=== PATIENT | male | born 1985 | race Caucasian/White ===

== ENCOUNTER 2018-01-09 09:33 | Emergency (ER) | payer SELFPAY ==
[2018-01-09 09:39] VITALS: TEMP 98.1
[2018-01-09] MEDS ORDERED: FOLIC ACID 1 MG TAB ONE (10:05)
[2018-01-09] MEDS: FOLIC ACID 1 MG TAB PO ONE (10:09)
--- NOTE | 2018-01-09 10:38 | RAD ---
EXAM DESCRIPTION: Chest,2 Views CLINICAL HISTORY: 32 years Male, frequent pvc's COMPARISON: None. IMPRESSION: Heart size and pulmonary vascularity are within normal limits. There is no airspace consolidation, pleural effusion, or pneumothorax. No acute osseous abnormality. Electronically signed by: Bandar Mora MD 01/09/2018 10:36 AM CDT
[2018-01-09] MEDS: SODIUM CHLORIDE 0.9% 1000ML 1,000 ML IVS ONE (11:47)
[2018-01-09] MEDS: METOPROLOL TARTRATE 25 MG TAB PO ONE (13:00)
[2018-01-09 13:05] VITALS: BP 133/56
--- NOTE | 2018-01-09 13:59 | ED.PDOC ---
History of Present Illness - General Chief Complaint: Cardiovascular Problem Stated Complaint: Palpitations Time Seen by Provider: 01/09/18 09:40 Source: patient Exam Limitations: no limitations - History of Present Illness Initial Comments: the patient is a 32-year-old male presenting to emergency room secondary to palpitations that have been increasing frequency gradually over the last week. No medication changes. No history of any heart issues. No syncope or near- syncope. No chest pain. Just a sensation of palpitations. He has been anxious about this. He denies any drug or alcohol use. No history of any congenital heart problems. No other new symptoms. On telemetry monitoring the patient is having fairly frequent irregular beats that are narrow complex. They range from every other to every 6 or 7 beats. Timing/Duration: 1 week Severity: moderate Improving Factors: nothing Worsening Factors: nothing Associated Symptoms: denies symptoms Allergies/Adverse Reactions: Allergies NO KNOWN ALLERGY Allergy (Verified 01/09/18 09:38) Home Medications: Ambulatory Orders Metoprolol Tartrate 25 mg PO BID #60 tab 01/09/18 Review of Systems - Review of Systems Constitutional: States: no symptoms reported EENTM: States: no symptoms reported Respiratory: States: no symptoms reported Cardiology: States: palpitations Gastrointestinal/Abdominal: States: no symptoms reported Genitourinary: States: no symptoms reported Musculoskeletal: States: no symptoms reported Skin: States: no symptoms reported Neurological: States: no symptoms reported Endocrine: States: no symptoms reported All other Systems: No Change from Baseline Past Medical History (General) - Patient Medical History Hx Seizures: No Hx Stroke: No Hx Dementia: No Hx Asthma: No Hx of COPD: No Hx Cardiac Disorders: No Hx Congestive Heart Failure: No Hx Pacemaker: No Hx Hypertension: No Hx Thyroid Disease: No Hx Diabetes: No Hx Gastroesophageal Reflux: No Hx Renal Disease: No Hx Cancer: No Hx of HIV: No Hx Hepatitis C: No Hx MRSA: No - Vaccination History Hx Tetanus, Diphtheria Vaccination: No Hx Influenza Vaccination: No Hx Pneumococcal Vaccination: No - Social History Hx Tobacco Use: Yes Hx Alcohol Use: Yes - social use Family Medical History - Family History Mother Hx Family Hypertension: Yes Physical Exam - Physical Exam General Appearance: Alert, Comfortable, No apparent distress Eye Exam: bilateral normal Ears, Nose, Throat: hearing grossly normal, normal ENT inspection, normal pharynx Neck: full range of motion, supple Respiratory: lungs clear, normal breath sounds, no respiratory distress, no accessory muscle use Cardiovascular/Chest: normal peripheral pulses, no edema, other - regular rate butoccasional irregular rhythm Peripheral Pulses: radial,right: 2+, radial,left: 2+, dorsalis pedis,right: 2+, dorsalis pedis,left: 2+ Gastrointestinal/Abdominal: non tender, soft Rectal Exam: deferred Back Exam: normal inspection, no CVA tenderness, no vertebral tenderness Extremity: normal range of motion, non-tender, normal inspection Neurologic: visual artist II-XII nml as tested, alert, normal mood/affect, oriented x 3 Skin Exam: normal color Comments: Vital Signs - 24 hr 01/09/18 01/09/18 01/09/18 09:34 10:56 10:57 Temperature 98.1 F Pulse Rate [ 77 76 79 Left Radial] Respiratory 20 20 20 Rate Blood Pressure 106/67 136/88 124/86 [Left Arm] O2 Sat by Pulse 95 96 97 Oximetry 01/09/18 01/09/18 10:58 12:50 Temperature Pulse Rate [ 89 82 Left Radial] Respiratory 20 20 Rate Blood Pressure 150/98 133/56 [Left Arm] O2 Sat by Pulse 96 99 Oximetry Progress - Progress Progress: 01/09/18 14:00 The patient is a 32-year-old male presenting to the emergency room secondary to a sensation of palpitations. After monitoring the patient for several hours it appears the patient is most likely having normal sinus rhythm with frequent aberrant beats, possibly from an accessory pathway. he has had no sustained arrhythmia. Vital signs have been stable. he patient was given a liter of fluids for mild dehydration and started on low-dose metoprolol. I did discuss the patient briefly over the phone with Dr. Dodson, electrophysiology from [place]. He has agreed that this is a reasonable course of action. The patient will be placed on metoprolol 25 mg twice daily. He needs to follow back up with his primary care doctor in a couple weeks for reevaluation. If this is continuing to be a significant problem in spite of the medication then he can be seen by Dr. Dodson for further evaluation. I see no evidence of any dangerous arrhythmia at this time captured on telemetry. ER warnings were given. - Results/Orders Results/Orders: plan to monitoring shows normal sinus rhythm with frequent irregular narrow complex beats. EKG shows normal sinus rhythm at 74 bpm. There are frequent irregular beats that are narrow complex. Normal axis. Normal R-wave progression. No acute ST segment changes concerning for ischemia. Normal QT interval. Chest x-ray shows no acute pathology. Laboratory Tests 01/09/18 01/09/18 01/09/18 09:50 09:50 09:50 WBC 8.0 RBC 5.64 Hgb 16.2 Hct 48.9 MCV 86.7 MCH 28.8 MCHC 33.2 RDW 14.1 Plt Count 169 MPV 10.6 H Absolute Neuts (auto) 4.60 Absolute Lymphs (auto) 2.10 Absolute Monos (auto) 0.80 Absolute Eos (auto) 0.40 Absolute Basos (auto) 0.10 Neutrophils % 57.1 Lymphocytes % 26.8 Monocytes % 10.0 H Eosinophils % 5.1 H Basophils % 1.0 PT 9.3 INR 0.93 PTT (SP) 24.6 D-Dimer, Quantitative 0.19 Sodium 141 Potassium 4.0 Chloride 106 Carbon Dioxide 28 Anion Gap 11.0 L BUN 20 H Creatinine 1.03 BUN/Creatinine Ratio 19.4 Random Glucose 97 Serum Osmolality 283.8 Calcium 9.4 Magnesium 1.9 Total Bilirubin 0.5 AST 38 ALT 52 Alkaline Phosphatase 76 Creatine Kinase 95 CK-MB (CK-2) 1.9 CK-MB (CK-2) % Not Reportable Troponin I < 0.02 B-Natriuretic Peptide 14.8 Serum Total Protein 7.0 Albumin 4.4 Globulin 2.6 Albumin/Globulin Ratio 1.7 TSH 2.75 Urine Color Urine Appearance Urine pH Ur Specific [place] Urine Protein Urine Glucose (UA) Urine Ketones Urine Blood Urine Nitrite Urine Bilirubin Urine Urobilinogen Ur Leukocyte Esterase Urine RBC Urine WBC Ur Epithelial Cells Urine Bacteria Urine Opiates Screen Urine Barbiturates Ur Phencyclidine Scrn U Amphetamin/Meth Scrn U Benzodiazepines Scrn U Cocaine Metab Screen U Cannabinoids Screen Ethyl Alcohol 01/09/18 01/09/18 01/09/18 09:50 10:05 10:05 WBC RBC Hgb Hct MCV MCH MCHC RDW Plt Count MPV Absolute Neuts (auto) Absolute Lymphs (auto) Absolute Monos (auto) Absolute Eos (auto) Absolute Basos (auto) Neutrophils % Lymphocytes % Monocytes % Eosinophils % Basophils % PT INR PTT (SP) D-Dimer, Quantitative Sodium Potassium Chloride Carbon Dioxide Anion Gap BUN Creatinine BUN/Creatinine Ratio Random Glucose Serum Osmolality Calcium Magnesium Total Bilirubin AST ALT Alkaline Phosphatase Creatine Kinase CK-MB (CK-2) CK-MB (CK-2) % Troponin I B-Natriuretic Peptide Serum Total Protein Albumin Globulin Albumin/Globulin Ratio TSH Urine Color Yellow Urine Appearance Clear Urine pH 5.5 Ur Specific [place] >= 1.030 Urine Protein Negative Urine Glucose (UA) Negative Urine Ketones Negative Urine Blood Negative Urine Nitrite Negative Urine Bilirubin Negative Urine Urobilinogen 0.2 Ur Leukocyte Esterase Negative Urine RBC 0 Urine WBC 0 Ur Epithelial Cells 0 Urine Bacteria 0 Urine Opiates Screen Negative Urine Barbiturates Negative Ur Phencyclidine Scrn Negative U Amphetamin/Meth Scrn Negative U Benzodiazepines Scrn Negative U Cocaine Metab Screen Negative U Cannabinoids Screen Negative Ethyl Alcohol < 5.40 Departure - Departure Clinical Impression: Aberrant premature complexes Disposition: Discharge to Home or Self Care Condition: Fair Departure Forms: ED Discharge - Pt. Copy, Patient Portal Self Enrollment Diet: regular diet Activity: increase activity as tolerated Prescriptions: Metoprolol Tartrate 25 mg PO BID #60 tab Home Medications: Ambulatory Orders Metoprolol Tartrate 25 mg PO BID #60 tab 01/09/18 Additional Instructions: The patient is a 32-year-old male presenting to the emergency room secondary to a sensation of palpitations. After monitoring the patient for several hours it appears the patient is most likely having normal sinus rhythm with frequent aberrant beats, possibly from an accessory pathway. he has had no sustained arrhythmia. Vital signs have been stable. he patient was given a liter of fluids for mild dehydration and started on low-dose metoprolol. I did discuss the patient briefly over the phone with Dr. Dodson, electrophysiology from [place]. He has agreed that this is a reasonable course of action. The patient will be placed on metoprolol 25 mg twice daily. He needs to follow back up with his primary care doctor in a couple weeks for reevaluation. If this is continuing to be a significant problem in spite of the medication then he can be seen by Dr. Dodson for further evaluation. I see no evidence of any dangerous arrhythmia at this time captured on telemetry. ER warnings were given.
[2018-01-09 14:22] VITALS: O2SAT 98
== END 2018-01-09 14:22 | disposition home or self-care (01) ==
LOC: ER 09:33
DX: I49.40 Unspecified premature depolarization (principal); E86.0 Dehydration; Z87.891 Personal history of nicotine dependence
CPT/HCPCS: 36415; 71046; 80053; 80307; 80320; 81001; 82550; 82553; 83735; 83880; 84443; 84484; 85025; 85379; 85610; 85730; 93005; J7030

== ENCOUNTER → 2018-02-06 | Outpatient (CLI) | payer BC | LOC: GMAH 16:52 | PROVIDERS: ATTEND Family Medicine | DX: R00.2 Palpitations (principal) ==

== ENCOUNTER → 2019-01-29 | Outpatient (CLI) | payer BC | LOC: GMA MATASK 13:02 | PROVIDERS: ATTEND Family Medicine | DX: R53.82 Chronic fatigue, unspecified (principal) ==

== ENCOUNTER → 2019-03-04 | Outpatient (CLI) | payer BC | LOC: SL 19:13 | PROVIDERS: ATTEND Family Medicine | DX: G47.33 Obstructive sleep apnea (adult) (pediatric) (principal); G47.10 Hypersomnia, unspecified; E66.2 Morbid (severe) obesity with alveolar hypoventilation ==